=== PATIENT | female | born 1955 | race American Indian/Alaskan Native ===

== ENCOUNTER 2017-12-06 15:18 | Emergency (ER) | payer MEDICARE ==
--- NOTE | 2017-12-06 16:38 | Emergency Department Report ---
Head Injury w/o Laceration - HPI Chief Complaint: Fall Stated Complaint: HEAD INJURY Time Seen by Provider: 12/06/17 16:33 Occurred When: Today Mechanism: Direct Blow Location: Frontal Severity: moderate Head Inj w/o Lac: Yes Headache, Yes Swelling, Yes Bruising, No Loss of Consciousness, No Nausea, No Blurred Vision, No Altered Mental Status, No Focal Deficit, No Break in Skin, No Bleeding Other History: Patient is 62-year-old female that presents emergency room for evaluation of a hematoma on her left forehead secondary to a fall or direct blow. Patient is currently a resident at [facility] for a [facility]. Patient is with her sitter at bedside. Patient answers all questions appropriately. Patient complaining of a headache in her left frontal area. ED General PMH - Past Medical History General Medical History: hypertension, other (psych. ) Surgical History: no surgical history LMP (females 10-50): unknown - Family History Significant Family History: no pertinent family hx - Social History Smoking Status: Never Smoker Alcohol Use: none Drug Use: N ED Neuro ROS - Review of Systems Constitutional: see HPI. denies: no symptoms reported, chills, diaphoresis, fever, malaise, weakness, other Eyes (ROS): see HPI. denies: no symptoms reported, blindness, blurred vision, drainage, decreased acuity, foreign body sensation, inflammation, pain, photophobia, previous injury, shadows, tunnel vision, vision change, contact lenses, glasses, other Ears, Nose, Mouth, Throat: see HPI. denies: no symptoms reported, ear pain, ear discharge, nose pain, nose discharge, epistaxis, mouth pain, mouth swelling , loose teeth, throat pain, throat swelling Respiratory: see HPI. denies: no symptoms reported, cough, orthopnea, short of breath, stridor, wheezing, other Cardiology: see HPI. denies: no symptoms reported, chest pain, edema, palpitations, syncope, other Gastrointestinal/Abdominal: see HPI. denies: no symptoms reported, abdominal pain, constipation, diarrhea, nausea, vomiting, other Genitourinary: see HPI Musculoskeletal: see HPI. denies: no symptoms reported, back pain, gout, joint pain, joint swelling, muscle pain, muscle stiffness, neck pain, other Skin: see HPI. denies: no symptoms reported, change in color, change in hair/ nails, dryness, lesions, lumps, rash, other Neurological: see HPI. denies: no symptoms reported, anxiety, depressed, emotional problems, cognitive dysfunction, headache, numbness, petit mal seizures, tingling, tonic-clonic seizures, unable to move lower ext, unable to move upper ext, weakness, other Endocrine: see HPI. denies: no symptoms reported, excessive sweating, flushing , intolerance to cold, intolerance to heat, increased hunger, increased thirst, increased urine, unexplained weight gain, unexplained weight loss, other Hematologic/Lymphatic: see HPI. denies: no symptoms reported, anemia, blood clots, easy bleeding, easy bruising, swollen glands, other All Other Systems: Reviewed and Negative Head Injury W/O Lac Exam - Exam General: Vital signs noted. No distress. Alert and acting appropriately. The patient appeared well nourished and normally developed. Vital signs as documented. Head exam left frontal hematoma and swelling. No scleral icterus or corneal arcus noted. Neck is without jugular venous distension, thyromegaly, or carotid bruits. Carotid upstrokes are brisk bilaterally. Lungs are clear to auscultation and percussion. Cardiac exam reveals the Rhythm is regular. First and second heart sounds normal. No murmurs, rubs or gallops. Abdominal exam reveals normal bowel sounds, no masses, no organomegaly and no aortic enlargement. Extremities are nonedematous and both femoral and pedal pulses are normal. Head: Yes Pupils are PERRL, Yes Hematoma/Ecchymosis (left frontal hematoma), No Hemotympanum, No Epistaxis, No Stepoff/Deformity, No Laceration, No Abrasion Chest, Abd, & Ext: Yes Clear Lung Sounds, Yes Regular Heart Rhythm, No Neck Pain , No Chest Injury/Pain, No Heart Murmur, No Abdominal Tenderness, No Back Tenderness, No Extremity Injury Neuroligical (Head Inj W/O Lac: No Lethargy, No Disorientation, No Focal Numbness, No Focal Weakness, No Normal Speech, No Normal Gait ED Disposition Clinical Impression: Anxiety Hematoma of frontal scalp Qualifiers: Encounter type: initial encounter Qualified Code(s): S00.03XA - Contusion of scalp, initial encounter Head injury Qualifiers: Encounter type: initial encounter Qualified Code(s): S09.90XA - Unspecified injury of head, initial encounter Disposition: [id number]/[id number] PSY HOSP/PSY UNIT Is pt being admited?: No Does the pt Need Aspirin: No Condition: Stable Instructions: Minor Head Injury (ED), Contusion in Adults (ED) Additional Instructions: Follow-up primary care in 3-5 days. [facility] to [facility] to [facility] treatment. Patient to return to ER if condition worsens. Patient to rest. Patient to take Tylenol or ibuprofen when necessary for pain. Referrals: PRIMARY CARE, [Primary Care Provider] - 3-5 Days Time of Disposition: 18:45 Medical Decision Making - Review of Prior Medical Records Reviewed prior Medical Records: Yes - Radiology Data Radiology results: report reviewed FINAL REPORT EXAM: CT HEAD/BRAIN WO CON HISTORY: head injury TECHNIQUE: CT head without contrast PRIORS: None. FINDINGS: No acute intra-axial or extra-axial hemorrhage is identified. There is no evidence of midline shift or mass effect. The ventricles and sulci are within normal limits. Harmon-white matter differentiation is intact. No acute parenchymal abnormalities seen. There are patchy and confluent hypodensities within the supratentorial white matter. Bony calvarium is grossly intact. Visualized portions of the mastoids and paranasal sinuses are unremarkable. IMPRESSION: Chronic small vessel white matter ischemic change Transcribed By: KAROL Dictated By: BRAULIO GORDON MD Electronically Authenticated By: BRAULIO GORDON MD Signed Date/Time: 12/06/17 1820 - Decision Making Attributes Decision statement: Prior to CT scan of head patient became acutely anxious and restless. Patient will be given Ativan so that the patient can calm down and we can obtain a clear head CT. MDM: Patient is a 62-year-old female presents for a head injury. Patient found to have a minor head injury and a negative head CT. Patient was given Ativan for procedural anxiety. Patient will be discharged back to [facility] to finish out her psychiatric treatment. Patient is stable for discharge. Patient and patient's sitter given discharge instructions. Both voice understanding of discharge instructions.
[2017-12-06] MEDS ORDERED: ATIVAN IV ONE (17:34)
--- NOTE | 2017-12-06 18:21 | Cat Scan Report ---
FINAL REPORT EXAM: CT HEAD/BRAIN WO CON HISTORY: head injury TECHNIQUE: CT head without contrast PRIORS: None. FINDINGS: No acute intra-axial or extra-axial hemorrhage is identified. There is no evidence of midline shift or mass effect. The ventricles and sulci are within normal limits. Harmon-white matter differentiation is intact. No acute parenchymal abnormalities seen. There are patchy and confluent hypodensities within the supratentorial white matter. Bony calvarium is grossly intact. Visualized portions of the mastoids and paranasal sinuses are unremarkable. IMPRESSION: Chronic small vessel white matter ischemic change
[2017-12-06 20:35] VITALS: BP 129/90
== END 2017-12-06 21:05 ==
LOC: ED 15:18
DX: S00.03XA Contusion of scalp, initial encounter (principal); F41.9 Anxiety disorder, unspecified; I10 Essential (primary) hypertension; W18.30XA Fall on same level, unspecified, initial encounter; Y93.89 Activity, other specified; Y92.89 Other specified places as the place of occurrence of the external cause; Y99.8 Other external cause status
CPT/HCPCS: 70450; 96374; 99284; J2060